=== PATIENT | female | born 1940 | race Caucasian/White ===

== ENCOUNTER → 2021-01-04 | Outpatient (CLI) | payer BC ==
[~2021-01-04] MED LIST: OMNICEF 300 MG300 MG PO
== END ==
LOC: KOH-I 16:12
DX: M54.6 Pain in thoracic spine (principal); M47.814 Spondylosis without myelopathy or radiculopathy, thoracic region
CPT/HCPCS: 72070

== ENCOUNTER → 2021-08-11 | Outpatient (CLI) | payer MEDICARE | LOC: HEART 5 08:33 | DX: R07.89 Other chest pain (principal); I08.3 Combined rheumatic disorders of mitral, aortic and tricuspid valves; I27.20 Pulmonary hypertension, unspecified | CPT/HCPCS: 78452; 93306; A9502; J2785 ==

== ENCOUNTER → 2022-04-18 | Outpatient (CLI) | payer MEDICARE | LOC: NM 09:00 | DX: R10.9 Unspecified abdominal pain (principal); R14.0 Abdominal distension (gaseous) | CPT/HCPCS: 76705; 78264; A9541 ==